=== PATIENT | female | born 1945 | race Caucasian/White ===

== ENCOUNTER → 2016-09-28 07:29 | Day surgery (SDC) | payer MEDICARE, BC ==
--- NOTE | 2016-09-18 17:12 | HP ---
HISTORY AND PHYSICAL: DATE OF ADMISSION: 09/28/16 - [place] [facility] The patient is scheduled for surgery on 09/28/16 at [facility]. CHIEF COMPLAINT: Discomfort in the right groin. The patient is scheduled for right inguinal hernia repair with mesh to be performed by Dr. Landis on . HISTORY OF PRESENT ILLNESS: This is a 71-year-old female who presented in July [address] Landis for evaluation of a right inguinal hernia that she knew was present, but in the recent months has become larger in size and more symptomatic. For the past 3 years, the size of this hernia has increased and there is discomfort associated with coughing when standing, achiness, again this has been progressive. On physical exam in July 2016, the hernia was identified and found to be completely reducible. It appears that it is above the ilioinguinal ligament and no other hernias were identified. She does have some well-healed scars in the abdomen from an ectopic many years ago and later a hysterectomy. There is no evidence of hernia in these regions and as well on the left side, there is no hernia present. Due to the fact that it is symptomatic, there is a new achiness and the size of it has gotten larger over the recent months. It was our recommendation that the patient proceed with hernia repair. This will be done by Dr. Landis at [facility] for a right inguinal hernia repair under local anesthesia with IV sedation. The patient had the opportunity to ask questions. She understands the surgery and wishes to proceed with surgery as planned. PAST MEDICAL HISTORY: Includes: 1. History of hypercholesterolemia. 2. History of hypothyroidism. 3. History of back and neck disorders. 4. History of migraine headaches. 5. She has had previous vein surgery and history of varicose veins. 6. Prior history of endometriosis. 7. Sinus condition that was surgically corrected with a deviated septum. She denies any cardiac history. Does not have a history of hypertension, cardiac disease, angina, or MT. No history of lung disorders, stroke, diabetes , or any other major medical problems. PAST SURGICAL HISTORY: Includes the followin. She had varicose vein surgery of both lower extremities with Dr. Henson in the past. 2. She had sinus surgery and repair of a deviated septum. This was done in [place] by Dr. Urbina in 2013. 3. She had TMJ surgery in 1986 that was at [facility]. 4. She is status post hysterectomy with oophorectomy, 1986, for endometriosis. 5. History of herniated disks into the lumbar region as well as cervical region and had surgery for this in [address] River at [facility]. MEDICATIONS: She is on: 1. Imitrex 50 mg p.o. daily p.r.n. 2. Lipitor 10 mg daily. 3. Aspirin 81 mg daily. She was told to discontinue this starting tomorrow. 4. Synthroid 75 mcg daily. ALLERGIES: Appears to have a sensitivity to MSG in food. PENICILLIN, she had a headache in relationship to PENICILLIN, more of a reaction and possibly some aches and pains associated with certain statin medicines. SOCIAL HISTORY: She is a retired teacher. She is . She lives in [place], [place]. She is a nonsmoker. She did smoke briefly in college, quit in 1969. Alcohol intake: Drinks approximately 1 glass a day. No prior history of hepatitis. REVIEW OF SYSTEMS: Had some flu-like symptoms approximately 2 weeks ago with aches and pains. No fever. No cold. This has resolved approximately 2 weeks ago. PHYSICAL EXAMINATION VITAL SIGNS: Her blood pressure is 127/76, her pulse is 75 and regular. Her weight is 178 pounds, she is 5 feet and 11 inches. HEENT: Within normal limits. NECK: Supple. There is no JVD or carotid bruits. Her thyroid is felt to be normal. LUNGS: Clear throughout. There are no rhonchi or wheezes. HEART: Regular rhythm with a soft 2/6 systolic murmur that I heard on exam. BREASTS: Evaluated by her primary annually. She is due for a mammogram this year, had a mammogram last year. It was negative showing dense breast tissue. ABDOMEN: Soft and nontender. There was no organomegaly. She does have some well- healed scars, one from an ectopic and then a second lower horizontal scar from her hysterectomy. I did examine her. She does not have any incisional hernia. There is no umbilical hernia, but she does have a hernia in the right inguinal region as noted by Dr. Landis. This is sensitive with coughing. EXTREMITIES: Reveal full range of motion without limitations. NEUROLOGIC: She is nonfocal and grossly intact. IMPRESSION: The patient has right inguinal hernia which is symptomatic. PLAN: 1. Plan is for her to undergo right inguinal hernia repair with mesh to be done open by Dr. Landis at [facility] on 09/28/16. 2. The patient was told to stop her aspirin at this time in preparation for the surgery and finally pain medicine was called into her pharmacy, so she will have this available postoperatively. ALDA PEGUERO CC: Carlito Landis MD; [facility]* [id number]/[facility] #: [id number] MTDD
[~2016-09-28 07:29] MED LIST: Buffered Lidocaine 1% SYRIN* 3 ML/SYR SYRINGE INTRADERM ONE; Bupivacaine 0.5% W/EPI SDV* 30 ML VIAL ONE; Clindamycin 900 MG IVPREMIX(* 900 MG/50 ML SDV IV ONE; Dexamethasone IV* 4 MG/ML 1 ML (4 MG) ONE; Famotidine IV* 10 MG/ML 2 ML (20 mg) IV ONE; Famotidine IV* 10 MG/ML 2 ML (20 mg) ONE; KETAMINE HCL* 50 MG/ML 10 ML VIAL ONE; Lidocaine 1% INJ* 10 MG/ML 30 ML SDV ONE; Lidocaine 2% PF* 5 ML VIAL ONE; Midazolam* 1 MG/ML 2 ML VIAL (2 MG) ONE; Morphine INJ* 2 MG/ML 1 ML SYRINGE IV PRN; Ondansetron INJ* 2 MG/ML VIAL ONE; PROCHLORPERAZINE INJ 5 MG/ML 2 ML VIAL IV PRN; Propofol* 10 MG/ML 20 ML BTL IV PUSH ONE; fentaNYL* 50 MCG/ML 2 ML VIAL (100 MCG VIAL) IV PRN; fentaNYL* 50 MCG/ML 2 ML VIAL (100 MCG VIAL) ONE; oxyCODONE/Acetamin 5/325 MG* TAB PO PRN
[2016-09-28 11:58] VITALS: BP 136/77
--- NOTE | 2016-10-01 03:40 | OP ---
DATE OF OPERATION: 09/28/16 - [place] [facility] DATE OF : 45 SURGEON: Carlito Landis MD [employer] CONSULTANT: Ashlyn Talamantes NP ANESTHESIOLOGIST: Renato Fisher MD ANESTHESIA: Local plus MAC. PREOPERATIVE DIAGNOSIS: Right inguinal hernia. POSTOPERATIVE DIAGNOSIS: Right indirect inguinal hernia. OPERATIVE PROCEDURE: Right inguinal hernia repair with Bard plug mesh system, size medium. ESTIMATED BLOOD LOSS: None. DESCRIPTION OF PROCEDURE: The patient was taken to the operating room. She underwent marking at the bulging on the right side of the groin and proper markings for side appropriate were made. The patient was then taken to the operating room. She was placed in the supine position. She was then prepped and draped in usual sterile fashion under sedation and after this was done and proper time-out, we then proceeded to infiltrate lidocaine 1% in the right groin area where the bulging mass was present. After this was done, we then proceeded to perform an oblique incision. The incision was carried down to the skin and subcutaneous tissue. Bleeders were controlled by electrocoagulation. Matthew's fascia was opened, exposing the external oblique fascia, which was thinned out by the hernia. The Marcaine was then infiltrated under the external oblique fascia and after this, the external oblique fascia was then opened up and down along the incision line. We then proceeded to identify the hernia sac, which was next to the round ligament, which was dissected off the hernia sac in the ilioinguinal nerve which was preserved. After this, the dissection was carried down into the internal ring all the way and around it with a large lipoma in this area. We then proceeded to open the sac. No components were in it. We then proceeded to suture ligate the base of the sac with 3-0 Vicryl and after this was done, the sac was transcended and sent as a specimen. The stump was then dropped back into the appropriate space. After this was done, there was a defect and weakness on the Hesselbach triangle , a plug was used to fill in the hole and an onlay mesh was layered in size to a proper coverage and after this was done, the onlay mesh was anchored to the plug and then subsequently to the pubic tubercle, internal oblique fascia and Poupart's ligament by using 2-0 Prolene interrupted sutures. After this was done, there was proper coverage of the area of the weakness of the Hesselbach triangle in the hernia opening and after this was completed, the external oblique fascia was then closed with a continuous 4-0 Vicryl. Subcutaneous tissue was closed with interrupted 4-0 Vicryl and the skin was closed with subcuticular 4-0 Prolene suture and Steri-Strips. The patient tolerated the procedure well and she was taken in good condition to recovery room. [id number]/[facility] #: [id number] [facility]ITAL[facility]ade
== END | disposition home or self-care (01) ==
LOC: OREAST 07:29
PROVIDERS: ATTEND Surgery
DX: K40.90 Unilateral inguinal hernia, without obstruction or gangrene, not specified as recurrent (principal); E03.9 Hypothyroidism, unspecified; E78.5 Hyperlipidemia, unspecified
CPT/HCPCS: 88304; C1781; J1100; J2001; J2250; J2405; J2704; J3010